=== PATIENT | male | born 1985 | race African-American/Black ===

== ENCOUNTER 2017-07-04 15:06 | Emergency (ER) | payer MEDICAID ==
[2017-07-04 16:12] VITALS: BP 134/83
--- NOTE | 2017-07-04 16:27 | UC ---
Respiratory Complaint HPI - HPI Summary HPI Summary: nasal congestion x 5 days + cough, pnd, bilateral ear pain no fever, no chills - History of Current Complaint Chief Complaint: UCRespiratory Stated Complaint: CHEST COLD/EAR PAIN Time Seen by Provider: 07/04/17 16:20 Hx Obtained From: Patient Onset/Duration: Gradual Onset, Lasting Days - 5, Still Present Timing: Constant Severity Initially: Moderate Severity Currently: Moderate Character: Cough: Nonproductive Aggravating Factors: Exertion, Deep Breaths Alleviating Factors: Nothing Associated Signs And Symptoms: Positive: URI, Nasal Congestion. Negative: Dyspnea, Fever, Chills, Wheezing, Hemoptysis, Dizziness, Calf Pain, Calf Swelling, Sinus Discomfort - Allergies/Home Medications Allergies/Adverse Reactions: Allergies Allergy/AdvReac Type Severity Reaction Status Date / Time No Known Allergies Allergy Verified 12/24/15 12:19 Home Medications: Home Medications amLODIPine/Benazepril 07/24(NF [Lotrel 07/24(NF)] 1 cap PO DAILY 07/04/17 [ History Confirmed 07/04/17] PMH/Surg Hx/FS Hx/Imm Hx Previously Healthy: Yes - Surgical History Surgical History: None - Family History Known Family History: Positive: None Negative: Diabetes - Social History Alcohol Use: None Substance Use Type: None Smoking Status (MU): Heavy Every Day Tobacco Smoker Type: Cigarettes Household Exposure Type: Cigarettes Review of Systems Constitutional: Negative Skin: Negative Eyes: Negative ENT: Sore Throat, Ear Ache, Nasal Discharge Respiratory: Cough Cardiovascular: Negative Is Patient Immunocompromised?: No All Other Systems Reviewed And Are Negative: Yes Physical Exam Triage Information Reviewed: Yes Appearance: Well-Appearing, No Pain Distress, Well-Nourished Vital Signs: Initial Vital Signs Temp 99.1 F 07/04/17 16:09 Pulse 89 07/04/17 16:09 Resp 16 07/04/17 16:09 BP 134/83 07/04/17 16:09 Pulse Ox 98 07/04/17 16:09 Vital Signs Reviewed: Yes Eye Exam: Normal Eyes: Positive: Conjunctiva Clear ENT: Positive: Normal ENT inspection, Hearing grossly normal, Pharynx normal, Nasal congestion, Nasal drainage, TMs normal Neck exam: Normal Neck: Positive: Supple, Nontender, No Lymphadenopathy Respiratory: Positive: Chest non-tender, Lungs clear, Normal breath sounds, No respiratory distress Cardiovascular: Positive: RRR, No Murmur, Pulses Normal Skin Exam: Normal UC Diagnostic Evaluation - Laboratory O2 Sat by Pulse Oximetry: 98 Respiratory Course/Dx - Differential Dx/Diagnosis Provider Diagnoses: uri Discharge - Discharge Plan Condition: Stable Disposition: HOME Patient Education Materials: Upper Respiratory Infection (ED) Referrals: Og Olson MD [Primary Care Provider] - If Needed
== END 2017-07-04 16:35 | disposition home or self-care (01) ==
LOC: UCCORT 15:06
DX: J06.9 Acute upper respiratory infection, unspecified (principal); F17.210 Nicotine dependence, cigarettes, uncomplicated
CPT/HCPCS: 99211; G0463

== ENCOUNTER 2018-04-24 14:41 | Emergency (ER) | payer OTHER ==
[2018-04-24 15:08] VITALS: BP 136/87
--- NOTE | 2018-04-24 15:40 | UC ---
Skin Complaint HPI - HPI Summary HPI Summary: Patient's complaining of hives for about a week. He states that he wears gloves at work liquid frequently drips down the gloves and gets on his arms. About a week ago he developed some hives on his left wrist area. He notes that is itchy. He's been self treating with some Benadryl cream which partially relieved the itch. He states that he's had the same about 2 months ago but that well and it's own. He denies any other new contacts, soaps, foods or exposures. - History of Current Complaint Chief Complaint: UCSkin Time Seen by Provider: 04/24/18 15:17 Stated Complaint: RASH Hx Obtained From: Patient Onset/Duration: Gradual Onset Timing: Constant Pain Intensity: 0 Associated Signs & Symptoms: Positive: Rash - Allergy/Home Medications Allergies/Adverse Reactions: Allergies Allergy/AdvReac Type Severity Reaction Status Date / Time No Known Allergies Allergy Verified 04/24/18 15:08 Review of Systems Constitutional: Negative Skin: Rash Eyes: Negative ENT: Negative Respiratory: Negative Cardiovascular: Negative Gastrointestinal: Negative Genitourinary: Negative Motor: Negative Neurovascular: Negative Musculoskeletal: Negative Neurological: Negative Psychological: Negative Is Patient Immunocompromised?: No All Other Systems Reviewed And Are Negative: Yes PMH/Surg Hx/FS Hx/Imm Hx Cardiovascular History: Hypertension - Surgical History Surgical History: None - Family History Known Family History: Positive: None Negative: Diabetes - Social History Occupation: Employed Full-time Lives: With Family Alcohol Use: None Substance Use Type: None Smoking Status (MU): Heavy Every Day Tobacco Smoker Type: Cigarettes Household Exposure Type: Cigarettes - Immunization History Vaccination Up to Date: Yes Physical Exam Triage Information Reviewed: Yes Appearance: Well-Appearing Vital Signs: Initial Vital Signs Temp 98.9 F 04/24/18 15:04 Pulse 85 04/24/18 15:04 Resp 19 04/24/18 15:04 BP 136/87 04/24/18 15:04 Pulse Ox 98 04/24/18 15:04 Vital Signs Reviewed: Yes Eyes: Positive: Conjunctiva Clear ENT: Positive: Normal ENT inspection Neck: Positive: Supple, Nontender, No Lymphadenopathy Respiratory: Positive: Lungs clear, Normal breath sounds, No respiratory distress Cardiovascular: Positive: RRR, No Murmur Abdomen Description: Positive: Nontender, No Organomegaly, Soft Bowel Sounds: Positive: Present Musculoskeletal: Positive: ROM Intact Neurological: Positive: Alert Psychological: Positive: Age Appropriate Behavior Skin Exam: Normal Skin: Positive: rashes - 4 small areas of slightly raised erythema left volar wrist plus dorsal wrist has linear area of the same. Rash appears to begin where his work gloves would end. No additional rash on his body. No blistering. Area not petechial. No burrows. Course/Dx - Course Course Of Treatment: Rash is consistent with contact otitis on the left wrist. Since localized little use in moderate strength topical steroid cream and close follow-up with primary care for recheck. No concern for bacterial infection. Blood pressure is noted to be elevated here. Patient has history of hypertension and it is being treated. - Diagnoses Provider Diagnoses: Contact dermatitis left wrist. Discharge - Sign-Out/Discharge Documenting (check all that apply): Patient Departure - Discharge Plan Condition: Stable Disposition: HOME Prescriptions: Triamcinolone 0.1% CREAM(NF) [Kenalog Cream 0.1%(NF)] 1 applic TOPICAL BID 7 Days #30 gm Patient Education Materials: Contact Dermatitis (ED) Referrals: Og Olson MD [Primary Care Provider] - 7 Days - Billing Disposition and Condition Condition: STABLE Disposition: Home
== END 2018-04-24 15:52 | disposition home or self-care (01) ==
LOC: UCCORT 14:41
DX: L25.9 Unspecified contact dermatitis, unspecified cause (principal); I10 Essential (primary) hypertension; F17.210 Nicotine dependence, cigarettes, uncomplicated
CPT/HCPCS: 99212; G0463